=== PATIENT | male | born 1980 | race Caucasian/White ===

== ENCOUNTER 2019-08-16 02:09 | Emergency (ER) | payer OTHER ==
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
== END 2019-08-16 03:17 | disposition home or self-care (01) ==
LOC: VM.ED 02:09
DX: F43.10 Post-traumatic stress disorder, unspecified (principal); I10 Essential (primary) hypertension; Z88.8 Allergy status to other drugs, medicaments and biological substances; Z87.891 Personal history of nicotine dependence; Z79.899 Other long term (current) drug therapy
CPT/HCPCS: 99282

== ENCOUNTER 2019-10-13 19:37 | Emergency (ER) | payer OTHER ==
[2019-10-13] MEDS ORDERED: Take Home: Doxycycline 100 MG Tab, 4 Tab Pack PO ONE (20:41)
--- NOTE | 2019-10-13 21:16 | CR ---
[id number] RAD/RAD Chest PA And Lateral EXAM: RAD Chest PA And Lateral CLINICAL DATA: SYNCOPE. BRADYCARDIA COMPARISON: NO PREVIOUS SIMILAR EXAM IS AVAILABLE. FINDINGS: The lungs are clear. The cardiomediastinal contour is normal. The regional bones and soft tissues are unremarkable. IMPRESSION: NO ACUTE PROCESS. Erasmo Dave MD 10/13/19 1277 Thank you for allowing us to participate in the care of your patient.
--- NOTE | 2019-10-14 06:49 | EDM.PDOC ---
ED HPI GENERAL MEDICAL PROBLEM - General Chief Complaint: General Stated Complaint: Cough, fever, body aches Time Seen by Provider: 10/13/19 19:45 Source of Information: Reports: Patient History Limitations: Reports: No Limitations - History of Present Illness INITIAL COMMENTS - FREE TEXT/NARRATIVE: Pt. presents to ER with complaints of cough and chest congestion. He states that he was started on amoxicillin for a sinus infection a few days ago. He states that for the past 2 days he has been experiencing cough, pleuritic chest pain, and fever. No body aches. No myalgias or arthralgias. Pt. states that his cough is productive of yellowish sputum. He states that he has had pleurisy in the past with chest infections and states that he is experiencing similar symptoms to this. Onset: Today Onset Date: 10/11/19 Location: Reports: Chest Associated Symptoms: Reports: Cough, cough w sputum body aches Pain Score (Numeric/FACES): 8 - Related Data Allergies Allergy/AdvReac Type Severity Reaction Status Date / Time pregabalin [From Lyrica] Allergy Pain Verified 10/13/19 20:06 Home Meds: Home Meds ALPRAZolam [Alprazolam ER] 2 mg PO DAILY 08/16/19 [History] Montelukast Sodium 10 mg PO BEDTIME 08/16/19 [History] Prazosin [Minpress] 1 cap PO BEDTIME #30 cap 08/16/19 [Rx] SUMAtriptan succinate [Sumatriptan Succinate] 50 mg PO ASDIRECTED PRN 08/16/19 [ History] Tadalafil 10 mg PO ASDIRECTED PRN 08/16/19 [History] lisinopriL [Lisinopril] 2.5 mg PO DAILY 08/16/19 [History] tiZANidine HCl [Tizanidine HCl] 1 tab PO TID PRN 08/16/19 [History] Past Medical History Cardiovascular History: Reports: High Cholesterol, Hypertension Psychiatric History: Reports: Anxiety - Past Surgical History Male Surgical History: Reports: Vasectomy ED ROS GENERAL - Review of Systems Review Of Systems: See Below Constitutional: Reports: No Symptoms HEENT: Reports: No Symptoms Respiratory: Reports: Pleuritic Chest Pain, Cough, Sputum Cardiovascular: Reports: No Symptoms Endocrine: Reports: No Symptoms GI/Abdominal: Reports: No Symptoms : Reports: No Symptoms Musculoskeletal: Reports: No Symptoms Skin: Reports: No Symptoms Neurological: Reports: No Symptoms Psychiatric: Reports: No Symptoms Hematologic/Lymphatic: Reports: No Symptoms Immunologic: Reports: No Symptoms ED EXAM, GENERAL - Physical Exam Exam: See Below Exam Limited By: No Limitations General Appearance: Alert, WD/WN, No Apparent Distress Nose: Normal Inspection, Normal Mucosa, No Blood Throat/Mouth: Normal Inspection, Normal Lips, Normal Teeth, Normal Gums, Normal Oropharynx, Normal Voice, No Airway Compromise Head: Atraumatic, Normocephalic Respiratory/Chest: No Respiratory Distress, Decreased Breath Sounds, Crackles, Other (diminished breath sounds, crackles in R base) Cardiovascular: Normal Peripheral Pulses, Regular Rate, Rhythm, No Edema, No Gallop, No JVD, No Murmur, No Rub Course - Vital Signs Last Recorded V/S: Last Vital Signs Temp 38.2 C H 10/13/19 19:56 Pulse 112 H 10/13/19 19:56 Resp 16 10/13/19 19:56 BP 138/94 H 10/13/19 19:56 Pulse Ox 96 10/13/19 19:56 - Orders/Labs/Meds Labs: Laboratory Tests 10/13/19 Range/Units 20:05 Urine Color Dark yellow H (YELLOW) Urine Appearance Slightly cloudy H (CLEAR) Urine pH 6.0 (5.0-8.0) Ur Specific [place] 1.020 Urine Protein Negative (NEGATIVE) mg/dL Urine Glucose (UA) Negative (NEGATIVE) mg/dL Urine Ketones Negative (NEGATIVE) mg/dL Urine Occult Blood Small H (NEGATIVE) Urine Nitrite Negative (NEGATIVE) Urine Bilirubin Negative (NEGATIVE) Urine Urobilinogen 0.2 (0.2) EU/dL Ur Leukocyte Esterase Negative (NEGATIVE) Urine RBC 5-10 H (NOT SEEN) /HPF Urine WBC 0-5 (NOT SEEN) /HPF Ur Squamous Epith Cells Not seen (NEGATIVE) /HPF Urine Bacteria Not seen (NEGATIVE) /HPF Urine Mucus Rare H (NEGATIVE) /LPF Meds: Medications Discontinued Medications Generic Name Dose Route Start Last Admin Trade Name Freq PRN Reason Stop Dose Admin Doxycycline Monohydrate 1 packet 10/13/19 20:41 10/13/19 20:58 Take Home: Doxycycline 100 Mg, 4 Tab Pack PO 10/13/19 20:42 1 packet ONETIME ONE Administration Departure - Departure Time of Disposition: 21:05 Disposition: Home, Self-Care 01 Clinical Impression: Pneumonia, Pleurisy - Discharge Information Instructions: Doxycycline tablets or capsules, Probiotics Referrals: PCP,Not In Area [Primary Care Provider] - Forms: ED Department Discharge Additional Instructions: Doxycycline 100mg 1 twice daily for 10 days Drink plenty of fluids Tylenol and ibuprofen as needed for fever/discomfort Off work until 24 hours after last fever Sepsis Event Note - Evaluation Sepsis Screening Result: Possible Sepsis Risk - Focused Exam Vital Signs: Vital Signs Temp Pulse Resp BP Pulse Ox 10/13/19 19:56 38.2 C H 112 H 16 138/94 H 96 Date Exam was Performed: 10/14/19 Time Exam was Performed: 06:51 - Assessment/Plan Plan: Doxycycline 100mg 1 twice daily for 10 days Drink plenty of fluids Tylenol and ibuprofen as needed for fever/discomfort Off work until 24 hours after last fever
== END 2019-10-13 21:05 | disposition home or self-care (01) ==
LOC: VM.ED 19:37
DX: J18.9 Pneumonia, unspecified organism (principal); R09.1 Pleurisy; I10 Essential (primary) hypertension; E78.00 Pure hypercholesterolemia, unspecified; F41.9 Anxiety disorder, unspecified; Z88.8 Allergy status to other drugs, medicaments and biological substances; Z79.899 Other long term (current) drug therapy
CPT/HCPCS: 71046; 81001; 87804; 99283; A9270